=== PATIENT | female | born 1950 | race Caucasian/White ===

== ENCOUNTER 2021-12-17 20:20 | Inpatient (IN) | payer MEDICARE ==
[~2021-12-17] VITALS: Ht 170.2 cm; Wt 120.5 kg
--- NOTE | 2021-12-17 20:27 | PHYS DOC ---
Adult General HPI HPI Patient is a 71-year-old female, with a past medical history of COPD who presents with COVID and shortness of breath which started yesterday. States has been using her COPD medications at home with some help. Denies any recent travels, traumas, known ill contacts, fevers, chest pain, abdominal pain, vomiting, dysuria, hematuria, blood in stool or diarrhea. Denies any numbness/weakness/tingling. Review of Systems Review of Systems Review of systems otherwise unremarkable except noted in HPI Physical Exam Physical Exam Constitutional: Well developed, well nourished, no acute distress, non-toxic appearance. [] HENT: Normocephalic, atraumatic, oropharynx moist, no oral exudates, nose normal. [] Eyes: PERRLA, EOMI, conjunctiva normal, no discharge. [] Neck: Normal range of motion, no tenderness, supple, no stridor. [] Cardiovascular:Heart rate regular rhythm, no murmur [] Lungs & Thorax: Tachypneic, hypoxic on room air, bilateral rhonchi, Abdomen: soft, no tenderness, no masses, no pulsatile masses. [] Skin: Warm, dry, no erythema, no rash. [] Back: No tenderness, no CVA tenderness. [] Extremities: No tenderness, no cyanosis, no clubbing, ROM intact, no edema. [] Neurologic: Alert and oriented X 3, normal motor function, normal sensory function, able to sit, stand and walk without issue no focal deficits noted. [] Psychologic: Affect normal, judgement normal, mood normal. [] EKG EKG [] Radiology/Procedures Radiology/Procedures [] Heart Score C/O Chest Pain: No Risk Factors: Risk Factors: DM, Current or recent (<one month) smoker, HTN, HLP, family history of CAD, obesity. Risk Scores: Risk Factors: DM, Current or recent (<one month) smoker, HTN, HLP, family history of CAD, obesity. Course & Med Decision Making Course & Med Decision Making P patient is a 71-year-old female who presents with shortness of breath and COVID positive Vital signs notable for tachypnea, tachycardia and hypoxia on room air. Physical exam noted above. Patient placed on the monitor with IV access established. Placed on 4 L nasal cannula EKG with a rate of 82, QRS of 78, QTc 416, no STEMI. Troponin not concerning. Laboratory analysis not concerning. Given breathing treatment, steroids and antibiotics as chest x-ray notable for multifocal bilateral perihilar and pulmonary infiltrates plus COPD exacerbation. Started on Lovenox. Discussed all findings with patient recommend admission for continued evaluation and treatment of her COPD exacerbation likely secondary to COVID-pneumonia. Patient grateful, verbalized understanding and agreed with plan of discharge. [] Dragon Disclaimer Dragon Disclaimer This electronic medical record was generated, in whole or in part, using a voice recognition dictation system. Departure Departure: Impression: Primary Impression: COVID Additional Impressions: Pneumonia Hypoxia COPD exacerbation Disposition: ADMITTED INPATIENT Admitting Physician: Louis Brown Condition: IMPROVED Problem Qualifiers YULIET MARTINEZ MD Dec 17, 2021 20:27
[2021-12-17] MEDS ORDERED: ONDANSETRON PF 4 MG/2 ML VIAL. IVP ONE ×2 (20:45→23:15)
[2021-12-17] MEDS ORDERED: IPRATRPIUM/ALBUTEROL 0.5/2.5MG 3 ML NEBU. NEB ONE (20:45)
[2021-12-17] MEDS ORDERED: DEXAMETHASONE 4 MG TABLET PO ONE (20:45)
--- NOTE | 2021-12-17 21:09 | RAD ---
EXAMINATION: Chest radiograph. VIEWS: 1 COMPARISON: None. INDICATION:71 years, Female, Shortness of breath. FINDINGS: Borderline enlarged cardiomediastinal silhouette. Tortuous thoracic aorta. Multifocal bilateral perih ilar and basilar pulmonary infiltrates. No pleural effusion or pneumothorax. No acute osseous process . IMPRESSION: Multifocal bilateral perihilar and basilar pulmonary infiltrates. Differential includes multifocal pn eumonia versus pulmonary edema. Electronically signed by: Janna Covarrubias MD (12/17/2021 9:06 PM) [facility]
[2021-12-17 21:14] LABS: BASO % 0 % (0-3); EOS % 0 % (0-3); HEMATOCRIT 38.7 % (36.0-47.0); LYMPH # 0.9 x10^3/uL (1.0-4.8); LYMPH % 11 % (24-48); MEAN CORPUSCULAR HEMOGLOBIN 32 pg (25-35); MEAN CORPUSCULAR HGB CONC 34 g/dL (31-37); MEAN CORPUSCULAR VOLUME 95 fL (79-100); MONO # 0.6 x10^3/uL (0.0-1.1); MONO % 7 % (0-9); NEUT # 6.6 x10^3uL (1.8-7.7); NEUT % 82 % (31-73); PLATELET COUNT 197 x10^3/uL (140-400); RED BLOOD COUNT 4.07 x10^6/uL (3.50-5.40); RED CELL DISTRIBUTION WIDTH 14.3 % (11.5-14.5); WHITE BLOOD COUNT 8.1 x10^3/uL (4.0-11.0)
[2021-12-17 21:21] LABS: CALCIUM 8.6 mg/dL (8.5-10.1); CREATININE 0.8 mg/dL (0.6-1.0); GFR 70.7; POTASSIUM 3.5 mmol/L (3.5-5.1)
--- NOTE | 2021-12-17 21:24 | RAD ---
EXAMINATION: CT head without IV contrast. INDICATION:71 years, Female, altered mental status. COMPARISON: None TECHNIQUE: Spiral acquisition of contiguous images from the skull base to the vertex were obtained. S agittal and coronal 2D reformatted series were provided by the technologist. Soft tissue and bone win kim algorithms were reviewed. Exposure: One or more of the following individualized dose reduction techniques were utilized for thi s examination: 1. Automated exposure control 2. Adjustment of the mA and/or kV according to patient size 3. Use of iterative reconstruction technique. FINDINGS: Neither mass, midline shift, intracranial hemorrhage, acute/subacute ischemic changes, nor extraaxial fluid collections are seen. Mild brain parenchymal volume loss. Supratentorial periventricular white matter hypodensities, indeterminate but most likely representing chronic microangiopathic disease. The paranasal sinuses, mastoid air cells, and middle ears are clear.The orbital contents appear withi n normal limits. IMPRESSION: 1. No evidence of acute intracranial abnormality. 2. Supratentorial periventricular white matter hypodensities, indeterminate but most likely represen ting chronic microangiopathic disease. Electronically signed by: Janna Covarrubias MD (12/17/2021 9:21 PM) [facility]
[2021-12-17 21:36] LABS: ALBUMIN/GLOBULIN RATIO 0.8 (1.0-1.7); TOTAL BILIRUBIN 0.5 mg/dL (0.2-1.0); TOTAL PROTEIN 6.9 g/dL (6.4-8.2)
--- NOTE | 2021-12-17 22:19 | EKG ---
[address] [address] Test Date: 2021-12-17 Test Time: 21:00:35 Pat Name: CHLOE STEPHENS Department: Room: Gender: F Rooms Director: : [id number] Requested By: YULIET MARTINEZ Order Number: [id number] Reading MD: Garfield Porter MD Measurements Intervals [place] Rate: 82 P: 150 DC: 180 QRS: 204 QRSD: 78 T: 98 QT: 354 QTc: 416 Interpretive Statements SINUS RHYTHM LIMB LEAD MISPLACEMENT Electronically Signed On 12-18-2021 8:42:20 CONTINUOUS [employer]PERVIS[employer] by Garfield Porter MD
[2021-12-17] MEDS ORDERED: ENOXAPARIN 40 MG/0.4 ML SYRINGE. SQ ONE (22:45)
[2021-12-17] MEDS ORDERED: IV RINGERS SOLUTION,LACTATED 1,000 ML IV ONE (23:15)
[2021-12-17 23:38] LABS: CLARITY,URINE CLEAR; COLOR,URINE YELLOW; GLUCOSE,URINE NEG (NEG)
[2021-12-17 23:39] LABS: BILIRUBIN,URINE SMALL (NEG); NITRITE,URINE NEG (NEG); RBC,URINE OCC /HPF (0-2)
[2021-12-17 23:40] LABS: BACTERIA,URINE FEW /HPF (0-FEW); SQUAMOUS EPITHELIAL CELL,UR FEW /LPF
[2021-12-18 01:04] VITALS: BP 175/84
[2021-12-18 05:48] VITALS: BP 96/63
[2021-12-18 07:39] LABS: BASO % 0 % (0-3); EOS % 0 % (0-3); HEMATOCRIT 37.8 % (36.0-47.0); HEMOGLOBIN 12.7 g/dL (12.0-15.5); LYMPH # 0.8 x10^3/uL (1.0-4.8); LYMPH % 9 % (24-48); MEAN CORPUSCULAR HEMOGLOBIN 32 pg (25-35); MEAN CORPUSCULAR HGB CONC 34 g/dL (31-37); MEAN CORPUSCULAR VOLUME 95 fL (79-100); MONO # 0.3 x10^3/uL (0.0-1.1); MONO % 4 % (0-9); NEUT # 7.6 x10^3uL (1.8-7.7); NEUT % 87 % (31-73); PLATELET COUNT 186 x10^3/uL (140-400); RED BLOOD COUNT 3.98 x10^6/uL (3.50-5.40); RED CELL DISTRIBUTION WIDTH 14.3 % (11.5-14.5); WHITE BLOOD COUNT 8.7 x10^3/uL (4.0-11.0)
[2021-12-18 08:13] LABS: C REACTIVE PROTEIN 77.7 mg/L (0-3.3); CALCIUM 8.4 mg/dL (8.5-10.1); CREATININE 0.7 mg/dL (0.6-1.0); GFR 82.5; POTASSIUM 3.6 mmol/L (3.5-5.1)
[2021-12-18 10:16] VITALS: BP 114/57
[2021-12-18] MEDS ORDERED: HYDR-2145 PO (11:54)
[2021-12-18] MEDS ORDERED: ALBU2.5V8 IH (11:54)
[2021-12-18] MEDS ORDERED: ALPR0.5T6 PO (11:54)
[2021-12-18] MEDS ORDERED: ZOLP10TA PO (11:54)
[2021-12-18] MEDS ORDERED: MONT-38 PO (11:54)
[2021-12-18] MEDS ORDERED: FLUO40CA2 PO (11:54)
[2021-12-18] MEDS ORDERED: CRESTOR40 MG PO (11:54)
[2021-12-18] MEDS ORDERED: HYDR-2769 PO (11:54)
[2021-12-18] MEDS ORDERED: ONDA4TAB12 PO (11:54)
[2021-12-18] MEDS ORDERED: BENA40TA74 PO (11:54)
[2021-12-18] MEDS ORDERED: TIOT4MIS3 IH (11:54)
[2021-12-18] MEDS ORDERED: ALLO300T PO (11:54)
[2021-12-18] MEDS ORDERED: EZET10TA20 PO (11:54)
[2021-12-18] MEDS ORDERED: FURO40TA4 PO (11:54)
[2021-12-18] MEDS ORDERED: RALO60TA PO (11:54)
--- NOTE | 2021-12-18 12:29 | HP ---
DATE OF SERVICE: 12/18/2021 ADMIT DATE: 12/17/2021 ATTENDING PHYSICIAN: Dr. Brown. CHIEF COMPLAINT: Shortness of breath. HISTORY OF PRESENT ILLNESS: The patient is a pleasant, active 71-year-old female admitted through the ED with increasing shortness of breath, chest x-ray evidence of bibasilar infiltrates and positive for coronavirus. She has been fully vaccinated with boosters. I suspect she has the Omicron variant. In any event, she was very weak, tired. Supplemental oxygen was added at 3 liters. She is a lot better today. She has got a dry nonproductive cough. She has been fully vaccinated. PAST MEDICAL HISTORY: Significant for degenerative arthritis, multiple surgeries on her knees and hip, hysterectomy, breast biopsy, arthroscopy, right-sided; both eyes cataract removal, colonoscopy, blepharoplasty and lower back surgery. She has had 2 live childbirth. Her daughters are in their early 50s. She also has essential hypertension, gout, underlying depression and COPD. SOCIAL HISTORY: She is a smoker. Up to 3 years ago, she has not used any electronic cigarettes. No alcohol use. FAMILY HISTORY: Father at age 65 of heart attack. Mom at 67 of a stroke. She is retired from [employer]. ALLERGIES: She has no known drug allergies. CURRENT MEDICATIONS: Include the following: She was on p.r.n. hydrocodone, allopurinol, alprazolam, Montelukast, benazepril, Crestor, raloxifene, fluoxetine, hydrochlorothiazide, zolpidem, Stiolto, ProAir, Lasix, and ondansetron. She has [id number] meds too. REVIEW OF SYSTEMS: Significant for the shortness of breath. No fevers per se. No palpitation. All other systems reviewed and turned to be negative. PHYSICAL EXAMINATION: GENERAL: When I saw her, this is a pleasant, middle-aged female. She was very alert. VITAL SIGNS: Her initial vital signs showed a blood pressure 114/57, pulse was 78 and regular. She was afebrile, oxygen saturation 91% on 3 liters by nasal cannula. HEENT: Head is without trauma. Pupils are reactive. Sclerae nonicteric. Oropharynx is clear. NECK: Supple, no bruits. LUNGS: Coarse rhonchi bilaterally. CARDIOVASCULAR: Showed regular heart tones. ABDOMEN: Soft. EXTREMITIES: Without edema. NEUROLOGIC FINDINGS: Focally intact. Speech is fluent. PERTINENT LABORATORY STUDIES: Her hemoglobin was 13.0 grams, white count 8100. Electrolytes within normal range. Nonfasting blood sugar 137. Chest x-ray as noted. ASSESSMENT: 1. A 71-year-old female with COVID-19 pneumonia. 2. Acute hypoxemic respiratory failure. 3. Chronic obstructive pulmonary disease. 4. Essential hypertension, currently normotensive. 5. History of breast cancer. 6. Generalized anxiety with depression. PLAN: 1. Continue some home meds. 2. I have held her benazepril and hydrochlorothiazide. 3. Empiric Solu-Medrol. 4. Empiric Rocephin. 5. Diet as tolerated. 6. We will try to wean down her supplemental oxygen. CHAD DR: Demetrio TID: [id number]
[2021-12-18] MEDS: methylPREDNISolone SOD SUCC PF 125 MG/2 ML VIAL. IV SCH ×2 (13:36→22:41)
[2021-12-18 16:08] VITALS: BP 100/66
[2021-12-18] MEDS ORDERED: ALPRAZolam 0.5 MG TABLET PO PRN (18:30)
[2021-12-18] MEDS ORDERED: HYDROcodone/APAP 10/325 1 TAB TABLET PO PRN (18:30)
[2021-12-18] MEDS ORDERED: ONDANSETRON ODT 4 MG TAB.RAPDIS PO PRN (18:30)
[2021-12-18] MEDS ORDERED: BUDE0.5A3 NEB (18:35)
[2021-12-18] MEDS ORDERED: ZOLPIDEM 5 MG TABLET. PO PRN (18:45)
[2021-12-18 19:50] VITALS: BP 114/67
[2021-12-18] MEDS: IPRATROPIUM/ALBUTEROL 20/100mcg/INH INHALER. INH SCH (20:00)
[2021-12-18] MEDS: ACETAMINOPHEN 325 MG TABLET PO PRN (20:42)
[2021-12-18 23:51] VITALS: BP 124/75
[2021-12-19 06:01] VITALS: BP 136/83
[2021-12-19] MEDS: methylPREDNISolone SOD SUCC PF 125 MG/2 ML VIAL. IV SCH ×3 (06:07→22:00)
[2021-12-19] MEDS ORDERED: NON FORMULARY ITEM (Tiotropium Br/Olodaterol HCl (Stiolto Respimat Inhal Spray) 2.5 GM) IH SCH (09:00)
[2021-12-19] MEDS: IPRATROPIUM/ALBUTEROL 20/100mcg/INH INHALER. INH SCH ×4 (09:20→21:05)
[2021-12-19] MEDS: MONTELUKAST 10 MG TABLET. PO SCH (09:20)
[2021-12-19] MEDS: ALLOPURINOL 300 MG TABLET. PO SCH (09:21)
[2021-12-19] MEDS: EZETIMIBE 10 MG TABLET PO SCH (09:21)
[2021-12-19] MEDS: ATORVASTATIN CALCIUM 20 MG TABLET PO SCH (09:21)
[2021-12-19] MEDS: RALOXIFENE 60 MG TABLET. PO SCH (09:21)
[2021-12-19] MEDS ORDERED: SODIUM CHLORIDE 0.65% NASAL SPRAY 45ML BOTTLE. NS PRN (10:00)
[2021-12-19 10:15] VITALS: BP 134/75
[2021-12-19 15:00] VITALS: BP 103/66
[2021-12-19] MEDS: BUDESONIDE 0.5 MG/2 ML NEBU NEB SCH (19:30)
[2021-12-19 19:47] VITALS: BP 137/57
[2021-12-19] MEDS: ACETAMINOPHEN 325 MG TABLET PO PRN (21:06)
[2021-12-19] MEDS: LACTOBACILLUS RHAMNOSUS GG 1 CAPSULE. PO SCH (21:06)
[2021-12-19 22:50] VITALS: BP_SYST 105; BP_SYST 107; BP_DIAS 65
--- NOTE | 2021-12-19 23:04 | PN ---
DATE: 12/19/2021 ATTENDING PHYSICIAN: Dr. Brown. SUBJECTIVE: Feeling better. She is up in a chair. She denied any dyspnea. Her oxygen saturations are maintained down to 2 liters by nasal cannula. OBJECTIVE FINDINGS: VITAL SIGNS: Blood pressure this morning is 136/83 mmHg, pulse is 75 and regular. She is afebrile. Oxygen saturation is 92% on 2 liters. HEENT: Head is without trauma. Pupils are reactive. Sclerae nonicteric. Oropharynx clear. NECK: Supple, no bruits. LUNGS: Good breath sounds. Minimal rhonchi at the bases. CARDIOVASCULAR: Regular heart tones. ABDOMEN: Soft. EXTREMITIES: Without edema. NEUROLOGIC FINDINGS: Focally intact. Speech is fluent. SKIN: Warm and dry. ASSESSMENT: 1. A 71-year-old female with COVID-19 pneumonia. 2. Acute hypoxemic respiratory failure, resolving. 3. Chronic obstructive pulmonary disease due to tobacco use. 4. Essential hypertension, currently normotensive. 5. History of breast cancer. 6. Generalized anxiety with depression, stable. PLAN: 1. Continue home medications as scheduled. 2. I have held her benazepril and hydrochlorothiazide for now. 3. Empiric steroids. 4. Empiric Rocephin. 5. Diet as tolerated. 6. We will wean down her supplemental oxygen, if we can get adequate saturation on room air. She can go home tomorrow with oral antibiotics. CHAD DR: Demetrio TID: [id number]
[2021-12-20] MEDS: methylPREDNISolone SOD SUCC PF 125 MG/2 ML VIAL. IV SCH (05:39)
[2021-12-20 05:55] VITALS: BP 124/78
[2021-12-20] MEDS: IPRATROPIUM/ALBUTEROL 20/100mcg/INH INHALER. INH SCH (09:25)
[2021-12-20] MEDS: ATORVASTATIN CALCIUM 20 MG TABLET PO SCH (09:26)
[2021-12-20] MEDS: LACTOBACILLUS RHAMNOSUS GG 1 CAPSULE. PO SCH (09:27)
[2021-12-20] MEDS: ALLOPURINOL 300 MG TABLET. PO SCH (09:27)
[2021-12-20] MEDS: MONTELUKAST 10 MG TABLET. PO SCH (09:28)
[2021-12-20] MEDS: RALOXIFENE 60 MG TABLET. PO SCH (09:31)
[2021-12-20] MEDS: EZETIMIBE 10 MG TABLET PO SCH (09:31)
[2021-12-20] MEDS: BUDESONIDE 0.5 MG/2 ML NEBU NEB SCH (09:31)
--- NOTE | 2021-12-20 11:05 | DS ---
DATE OF DISCHARGE: 12/20/2021 ATTENDING PHYSICIAN: Dr. Brown. FINAL DISCHARGE DIAGNOSES: 1. COVID-19 pneumonia. 2. Acute hypoxemic respiratory failure. 3. Chronic obstructive pulmonary disease, longstanding due to tobacco use. 4. Essential hypertension. 5. History of breast cancer. 6. Generalized anxiety with depression, stable. HISTORY AND PHYSICAL: The patient is a pleasant 71-year-old female, heavy smoker in the past, admitted with increase in shortness of breath, hypoxemia and chest x-ray evidence of pneumonia. She tested positive for coronavirus. PHYSICAL EXAMINATION: Please see my dictated note. PERTINENT LABORATORY AND X-RAY STUDIES: Admission hemoglobin was 13.0 g/dL, white count 8100. Chemistry panel unremarkable with normal BUN, creatinine, electrolytes. Urinalysis is clear. COURSE IN HOSPITAL: The patient was admitted. She was started on empiric Solu-Medrol, antibiotics and supplemental oxygen. Oxygen was weaned down to maintain saturations above 90% at 2 liters by nasal cannula. On the fourth hospital day, she was feeling much better, lungs were clear. She wanted to go home. I tried to get her off the oxygen, but she desaturated down to 87% at rest and with any exertion, she desaturated down to 77%. We tried to arrange for home oxygen, but she tells me that her daughter who lives close by has a portable oxygen tank and concentrator, which she is not using now. Since this is going to be a temporary nature, she really wanted to go home today. I felt it was reasonable for her to be discharged. I therefore wrote scripts for prednisone 40 mg p.o. daily for the next 7 days and stop, cephalexin 500 mg p.o. t.i.d. for 7 days and stop. Continuation of her home meds including the following: She should continue her albuterol, allopurinol, Xanax p.r.n., Lotensin, Pulmicort, Zetia, Prozac, Lasix, hydrocodone p.r.n., montelukast, Evista, Crestor and Ambien dose is unchanged. She will follow up with her PCP hopefully in 1 week's time. Again, I tried to get supplemental oxygen. The patient already has oxygen at home. Strong encouragement to avoid further tobacco use, whether or not she will quit smoking or vaping remains to be seen. She was discharged then from our hospital in stable condition with explicit drug and followup care. She understands about COVID quarantine for the next 7 days. Total discharge time spent in discharge 41 minutes. JANUARY/YEMI DR: JANUARY/chantel TID: [id number]
--- NOTE | 2021-12-20 15:11 | NUR ---
Discharge: Pt insist on going home. On room air pt dropped to the mid 80's. flow manager not in hospital to set up patient on home oxygen. pt has a daughter who has a concentrator at home and will use this at home. pt was sent with 02 from hospital for ride home. will return the tank. Pt signed d/c paperwork and IV was removed. Pt was on 4 L at d/c. Pt instructed to use sp02 monitor at home and call with any questions or concerns. pt will follow up with Dr. Rodríguez.
== END 2021-12-20 10:45 | disposition home or self-care (01) | DRG 177 ==
LOC: ER 20:20 → 1 SOUTH 23:00
PROVIDERS: ADMIT Hospitalist; ATTEND Hospitalist
DX: U07.1 COVID-19 (principal); J96.01 Acute respiratory failure with hypoxia; J12.82 Pneumonia due to coronavirus disease 2019; J44.0 Chronic obstructive pulmonary disease with (acute) lower respiratory infection; J44.1 Chronic obstructive pulmonary disease with (acute) exacerbation; F17.200 Nicotine dependence, unspecified, uncomplicated; F41.1 Generalized anxiety disorder; I10 Essential (primary) hypertension; Z82.3 Family history of stroke; Z82.49 Family history of ischemic heart disease and other diseases of the circulatory system; Z85.3 Personal history of malignant neoplasm of breast; Z90.710 Acquired absence of both cervix and uterus; F32.A Depression, unspecified; M10.9 Gout, unspecified; M19.90 Unspecified osteoarthritis, unspecified site
CPT/HCPCS: 36415; 70450; 71045; 80048; 80053; 81001; 83605; 84484; 85025; 86140; 87040; 93005; 94640; 96365; 96372; 96375; 96376; J0696; J1650; J1956; J2405; J2930; J3010; J7120; J8540; 97530; 97535; 99285-25